=== PATIENT | female | born 2000 | race Caucasian/White ===

== ENCOUNTER 2024-08-26 05:03 | Inpatient (IN) | payer SELFPAY, OTHER ==
[2024-08-26] VITALS (47 sets, daily range): BP systolic 99–139; BP diastolic 61–97; PULSE 72–99; RESP 14–18; TEMP 36.2–37.1; O2SAT 88–100; BMI 39.3
[2024-08-26] MEDS: Lactated Ringers 1,000 ML 999 ML IV (05:25)
[2024-08-26 06:05] LABS: Absolute Lymphocyte Count 1.09 X10^3/uL (0.83-4.51); Absolute Neutrophil Count 15.9 X10^3/uL (2.0-7.7); Basophil# 0.03 X10^3/uL; Basophil% 0.2 % (0-1); Eosinophil# 0.01 X10^3/uL; Eosinophils% 0.1 % (0-5); Hematocrit 38.8 % (37-47); Hemoglobin 13.4 g/dL (12.0-15.0); Lymphocyte # 1.09 X10^3/ul (0.83-4.51); Lymphocyte % 6.1 % (19-41); Mean Corp Hgb Conc 34.5 g/dL (32-36); Mean Corpuscular Hgb 28.5 pg (27.0-32.0); Mean Corpuscular Volume 82.4 fL (81-99); Mean Platelet Vol. 9.3 fl (6.2-12.0); Monocyte# 0.82 X10^3/uL; Monocyte% 4.6 % (0-10); NRBC Flagged by Analyzer 0 % (0-5); Neutrophil # 15.94 X10^3/uL (2.7-7.7); Neutrophil % 88.5 % (47-70); Platelet Count 284 K/mm3 (150-450); RBC Distribution Width CV 13.2 % (11.6-14.6); RBC Distribution Width SD 39.4 fl (35.1-43.9); Red Blood Count 4.71 M/mm3 (4.2-5.4)
[2024-08-26] MEDS: Lactated Ringers 1,000 ML 200 ML IV ×2 (06:30→11:44)
[2024-08-26] MEDS: fentaNYL-bupivacaine (epidural) 100 ML BAG EPIDURAL ×2 (06:52→11:44)
--- NOTE | 2024-08-26 07:00 | PCM.HP.OB ---
HPI - General General Date of Admission: 08/26/24 HPI Narrative BENEDICT BAHENA, is a 23 F who presents @ 40w3d IAL presenting from home after attempting wanting pain management. she had a previous csection for AOD at 8 cm at [facility]. she delivered an 8lb 15 ounce baby around her due date she was induced for GHTN. She has been laboring since yesterday with contractions and made change to 8 cm, water intact, and then wanted pain management so her community relations police lieutenant Barb brought her to the hospital. bedside ultrasound confirms vertex presentation. Maternal Data Information RENETTA Calculator Estimated Delivery Date Method Current WG Current Estimate 08/23/24 Manual 40w 3d PFSH PFSH Home Medications ?Medication ?Instructions ?Recorded ?Last Taken ?Type NK 08/26/24 Unknown History Allergy/AdvReac Type Severity Reaction Status Date / Time No Known Allergies Allergy Verified 08/26/24 05:43 Surgical History (Updated 08/26/24 @ 07:[address] Arleen Cortez MD) delivery delivered Social History Smoking Status: Never smoker History 2 Elective abortions Hx Para 1 Spontaneous abortions Hx # Term Pregnancies 1 Ectopic pregnancies Hx # Pregnancies Multiple births # of living children 1 Past Pregnancies Del. Date Name GA/Weeks Outcome Route Bth Weight Gen Labor Lgth Anesthesia Del Locatn Provider FOB Unknown live - full term 8lbs 15 ounces Male Vina Delivery Date: Last Updated by: Arleen Cortez MD 8cm AOD IOL ghtn NST FHR Rate Baby A Baseline: 130 Variability:: Moderate Accelerations:: 15 x 15 Decelerations:: None NST Reactive:: Yes FHR Category:: Category I Uterine Activity:: irregular ROS Constitutional Constitutional: Reports systems reviewed and no addt'l complaints, except as documented Eyes Eyes: Denies change in vision ENT HEENT: Reports systems reviewed and no addt'l complaints, except as documented; Denies headache(s) Cardiovascular Cardiovascular: Reports systems reviewed and no addt'l complaints, except as documented; Denies chest pain or dyspnea Respiratory/Chest Respiratory/Chest: Reports systems reviewed and no addt'l complaints, except as documented Gastrointestinal Gastrointestinal: Reports systems reviewed and no addt'l complaints, except as documented; Denies abdominal pain Genitourinary Genitourinary: Reports systems reviewed and no addt'l complaints, except as documented, contractions Details: present (irregular) and movement Details: present; Denies dysuria or genital lesions Musculoskeletal Musculoskeletal: Reports systems reviewed and no addt'l complaints, except as documented Neurologic Neurologic: Reports systems reviewed and no addt'l complaints, except as documented Endocrine Endocrinology: Reports systems reviewed and no addt'l complaints, except as documented Vital Signs Vital Signs Vital Signs: 08/26/24 05:31 08/26/24 05:31 08/26/24 05:34 Temperature Temperature Source Temporal Pulse Rate 97 Respiratory Rate Blood Pressure BP Systolic BP Diastolic Pulse Ox 97 08/26/24 05:34 08/26/24 05:34 08/26/24 05:35 Temperature 97.8 F Temperature Source Pulse Rate Respiratory Rate 18 Blood Pressure 135/83 H BP Systolic 135 BP Diastolic 83 Pulse Ox 08/26/24 05:35 08/26/24 06:26 08/26/24 06:26 Temperature Temperature Source Pulse Rate 92 88 Respiratory Rate Blood Pressure 120/83 H BP Systolic 120 BP Diastolic 83 Pulse Ox 08/26/24 06:27 08/26/24 06:27 08/26/24 06:31 Temperature Temperature Source Pulse Rate 86 Respiratory Rate Blood Pressure 131/85 H BP Systolic 131 BP Diastolic 85 Pulse Ox 99 08/26/24 06:31 08/26/24 06:32 08/26/24 06:32 Temperature Temperature Source Pulse Rate 83 97 Respiratory Rate Blood Pressure BP Systolic BP Diastolic Pulse Ox 99 08/26/24 06:36 08/26/24 06:36 08/26/24 06:37 Temperature Temperature Source Pulse Rate 91 91 Respiratory Rate Blood Pressure 135/87 H BP Systolic 135 BP Diastolic 87 Pulse Ox 08/26/24 06:37 08/26/24 06:41 08/26/24 06:41 Temperature Temperature Source Pulse Rate 92 Respiratory Rate Blood Pressure 127/77 H BP Systolic 127 BP Diastolic 77 Pulse Ox 99 08/26/24 06:42 08/26/24 06:42 08/26/24 06:46 Temperature Temperature Source Pulse Rate 79 Respiratory Rate Blood Pressure 131/70 H BP Systolic 131 BP Diastolic 70 Pulse Ox 99 08/26/24 06:46 08/26/24 06:47 08/26/24 06:47 Temperature Temperature Source Pulse Rate 84 83 Respiratory Rate Blood Pressure BP Systolic BP Diastolic Pulse Ox 98 08/26/24 06:51 08/26/24 06:51 08/26/24 06:52 Temperature Temperature Source Pulse Rate 91 94 Respiratory Rate Blood Pressure 133/61 H BP Systolic 133 BP Diastolic 61 Pulse Ox 08/26/24 06:52 08/26/24 06:56 08/26/24 06:56 Temperature Temperature Source Pulse Rate 88 Respiratory Rate Blood Pressure 139/65 H BP Systolic 139 BP Diastolic 65 Pulse Ox 100 08/26/24 06:57 08/26/24 06:57 Temperature Temperature Source Pulse Rate 96 Respiratory Rate Blood Pressure BP Systolic BP Diastolic Pulse Ox 99 Weight Weight: 215 lb Body Mass Index (BMI) 39.3 Physical Exam Const alert, oriented x3, no apparent distress and healthy appearing HEENT normocephalic and moist oral mucous membranes Head and Scalp: atraumatic Neck full ROM, no lymphadenopathy, supple and thyroid normal General: trachea midline Lymph Lymphatic: no lymphadenopathy noted Chest inspection of chest normal Resp normal respiratory effort Cardio regular rate GI soft to palpation and non-tender GI Narrative: gravid Inspection: gravid external exam normal Manual OB Exam: estimated gestational size appropriate, presentation cephalic, dilated, effaced and station Extremity normal to inspection General Extremity: Negative for edema Skin no rashes or lesions noted Neuro no focal motor deficits and deep tendon reflexes 2+ bilaterally Motor Exam: strength 5/5 throughout and clonus absent Psych mental status grossly normal Labs Labs Labs: Blood Type A POSITIVE Antibody Screen NEGATIVE Hct 38.8 % (37-47) Hgb 13.4 g/dL (12.0-15.0) Syphilis Total Ab Pending Rubella IgG Antibody Pending Hep Bs Antigen Pending Hepatitis C Antibody Pending HIV 1&2 Antibody Pending Assessment & Plan (1) Active labor at term: COMMENT: trial of labor for PLAN: Plan patient wishes to proceed with trial of labor, recommend epidural and then plan AROM, possible pitocin if needed.
[2024-08-26 07:01] LABS: Bedside Glucose 103 mg/dL (74-106)
[2024-08-26 09:33] LABS: Bedside Glucose 92 mg/dL (74-106)
[2024-08-26 10:56] LABS: Bedside Glucose 96 mg/dL (74-106)
--- NOTE | 2024-08-26 12:15 | PCM.PN.BLA ---
Progress Note pit started for no change 1 hour after ROM cat I tracing iupc placed
[2024-08-26] MEDS: Oxytocin 15 Units/NS 250ml 15 UNITS/250 ML IV.SOLN 2 UNITS IV (12:28)
[2024-08-26 13:18] LABS: Bedside Glucose 100 mg/dL (74-106)
[2024-08-26] MEDS: 0.9% Normal Saline 1,000 ML IV.SOLN. 300 ML INTRA-UTER (13:52)
[2024-08-26 13:59] LABS: Rubella IgG Non-Reactive (Nonreactive); Syphilis Antibodies Non-reactive
[2024-08-26] MEDS: DiphenhydrAMINE 50 MG/ML Syringe IV (14:11)
[2024-08-26 14:16] LABS: Hepatitis B Surface Antigen Non-Reactive (Nonreactive); Hepatitis C Antibody Non-Reactive (Nonreactive)
[2024-08-26 16:10] LABS: Bedside Glucose 92 mg/dL (74-106)
[2024-08-26] MEDS: Acetaminophen 500 MG Tablet PO (16:21)
[2024-08-26] MEDS: Sodium Citrate/Citric Acid 30 ML UDC PO (16:21)
--- NOTE | 2024-08-26 16:30 | PN.OBGYN_ITS ---
Subjective Subjective no cervical change, regressin back to 6-7 cm despite pitocin and position changes, reocmmend proceeding with RLTCS. Objective Data Objective Data Vital Signs: Vital Signs Temp Pulse Resp BP Pulse Ox 98.7 F 82 16 119/76 99 08/26/24 12:22 08/26/24 12:22 08/26/24 12:22 08/26/24 12:22 08/26/24 12:22 Weight: 215 lb Body Mass Index (BMI) 39.3 Intake & Output: Intake and Output for Last 24 Hours 08/24/24 08/25/24 08/26/24 23:59 23:59 23:59 Intake Total 2000. / Output Total 1400 / 1400 Balance 601.03 / 601.03 Lab / Micro Data 08/26/24 05:25 Labs: Laboratory Results - last 24 hr 08/26/24 05:25: WBC 18.0 H, RBC 4.71, Hgb 13.4, Hct 38.8, MCV 82.4, MCH 28.5, MCHC 34.5, RDW Std Deviation 39.4, RDW Coeff of [place] 13.2, Plt Count 284, MPV 9.3, Immature Gran % (Auto) 0.500, Neut % (Auto) 88.5 H, Lymph % (Auto) 6.1 L, [place] % (Auto) 4.6, Eos % (Auto) 0.1, Baso % (Auto) 0.2, Absolute Neuts (auto) 15.9 H, Absolute Lymphs (auto) 1.09, Nucleated RBC % 0, Urine Color Cancelled, Urine Clarity Cancelled, Urine pH Cancelled, Ur Specific [place] Cancelled, U Specif Grav (Refrac) Cancelled, Urine Protein Cancelled, Urine Glucose (UA) Cancelled, Urine Ketones Cancelled, Urine Occult Blood Cancelled, Urine Nitrite Cancelled, Urine Bilirubin Cancelled, Urine Urobilinogen Cancelled, Ur Leukocyte Esterase Cancelled, Urine RBC Cancelled, Urine WBC Cancelled, Ur Squamous Epith Cells Cancelled, Ur Transition Epith Cell Cancelled, Ur Renal Epithelial Cell Cancelled, Calcium Oxalate Crystal Cancelled, Uric Acid Crystals Cancelled, Triple Phos Crystals Cancelled, Other Crystals Cancelled, Amorphous Sediment Cancelled, Urine Bacteria Cancelled, Hyaline Casts Cancelled, Fine Granular Casts Cancelled, Coarse Granular Casts Cancelled, Waxy Casts Cancelled, RBC Casts Cancelled, WBC Casts Cancelled, Urine Mucus Cancelled, Urine Trichomonas Cancelled, Urine Yeast Cancelled, Syphilis Total Ab Non-reactive, Hep Bs Antigen Non-Reactive, Hepatitis C Antibody Non-Reactive, Rubella IgG Antibody Non- Reactive, Blood Type A POSITIVE, Antibody Screen NEGATIVE 08/26/24 06:43: POC Glucose 103 08/26/24 09:15: POC Glucose 92 08/26/24 10:29: POC Glucose 96 08/26/24 12:35: POC Glucose 100 08/26/24 15:51: POC Glucose 92
--- NOTE | 2024-08-26 16:31 | OP.PCM_ITS ---
Assessment & Plan (1) Active labor at term: COMMENT: trial of labor for (2) Arrest of dilation, delivered, current hospitalization: (3) delivery delivered: COMMENT: RLTCS failed TOLAC 6-8 cm community health outreach worker care, 40 weeks diabetes. LORA amos Maternal Data Information RENETTA Calculator Estimated Delivery Date Method Current WG Current Estimate 08/23/24 Manual 40w 6d Operative Report (OB) Cecarean Details Procedure Type: low transverse Date of Procedure: 08/26/24 Procedure Start Time: 16:54 Procedure Stop Time: 17:25 Pre-Operative Diagnosis: Other Other Pre-Operative diagnosis: see a/p comments Post-Operative Diagnosis: Same as Pre-operative diagnosis Classification: DEB Type of Anesthesia: Epidural Special Medications: none Antibiotic Given: Ancef 2 grams IV x1 Drain: [place] to straight drain Estimated Blood Loss: 800 Fluids Replaced: crystalloid Findings Description of surgery: The patient was placed in the dorsal supine position with leftward tilt. Patient was prepped and draped in the normal sterile fashion. Pfannenstiel skin incision was made with the scalpel and carried through to the underlying layer of fascia with the scalpel. Fascia was nicked in the midline and the incision extended laterally. The rectus bellies were dissected off superiorly and inferiorly with out complication both sharply and bluntly. The peritoneum was entered digitally. The incision was stretched and a low transverse uterine incision was made with the scalpel. The infant's head was delivered atraumatically followed by the anterior and posterior shoulders without complication the rest of the infant delivered. The cord was clamped and cut and the infant was handed off to awaiting nurse. The placenta was delivered spontaneously immediately following and was noted to be intact and have a three- vessel cord. The uterus was exteriorized cleared of all clots and debris, and the incision was closed in a single layer closure using #1 Monocryl with some areas of extra reinforcement for structure and hemostasis. The ovaries and fallopian tubes were noted to be within normal limits. The uterus was returned to the maternal abdomen and gutters were cleared of all clots and debris. The peritoneum was closed with 3-0 Monocryl in a running fashion. Gloves were changed prior to fascial closure. Fascia was closed with 0 PDS in a running fashion. Subcutaneous tissue was copiously irrigated and the skin was closed with 3-0 Monocryl in a subcuticular fashion. Mepilex dressing was applied without complication. Patient was taken to recovery in stable condition. Surgical findings: nl uterus tubes and ovaries. Amniotic Membrane Rupture Type: Artificial Amniotic Fluid Description: Moderate meconium Specimen collected: Yes Description of specimen(s) removed: Placenta Cord Vessel Description: 3 Vessels Delayed Cord Clamping: Yes Information Delivery Analyst national dedicated truck driver: Yes Library Clerical Assistant: Keli Hurst Tasks completed by first breaker feeder: Opening & closing, Retracting and Other (Assisting with delivery of the ) Additional optometric assistant?: No Complications Complications: No Admit VTE Documentation VTE Present on Admission: No VTE Mechan Device Prophylaxis: SCD's Procedures Urinary/Genital [id number]: [id number] delivery+PP Care([facility])
--- NOTE | 2024-08-26 16:34 | DCINST_ITS ---
Discharge Instructions Diet Discharge Diet: No restrictions DC O2, CPAP, BIPAP needs Home O2 Discharge instructions: No Dressing / Incision Discharge Activity: May Not Drive (for 2 weeks or while taking narcotic pain medications.), May Shower and May Take a Tub Bath (in 7 days) May shower in (days): 0 May resume sexual activity in: 4-6 weeks Weight Bearing Status: Full weight bearing Lifting Restrictions: 20 pounds Dressing / Incision Call your doctor if your incision/area has: Continuous Slow Oozing, Sudden Increased Bleeding, Increased Pain/ Swelling, Increased Redness and Foul Smelling Discharge Call your doctor if you observe: Fever of 101 or Higher and Using more than 1 pad per hour (for 2 hours) Suture Line Care: Avoid Pulling/Pushing and Avoid Pinching/Bending Cleanse incision/area with: Soap & Water and Keep Dressing Clean & Dry Follow Up Care Please Follow Up With: Arleen Cortez MD When: Call [phone] to make an appointment for an incision check in 1-2 weeks. Test Results: Test results from this visit will be discussed in further detail at your follow- up appointment, if applicable. Discharge Plan Admission Admit Date/Time: 08/26/24 05:03 Attending Provider: Arleen Cortez Discharge Orders/Prescriptions Prescriptions: New oxycodone-acetaminophen [Percocet] 5-325 mg tablet 1 tab PO Q4H PRN (Reason: pain) 7 Days Qty: 20 0RF naproxen [naproxen] 500 mg tablet 500 mg PO BID PRN PRN (Reason: Pain) Qty: 30 1RF oxycodone-acetaminophen [Percocet] 5-325 mg tablet 1 tab PO Q6H PRN (Reason: pain) 7 Days Qty: 20 0RF naproxen 500 mg tablet 500 mg PO BID PRN PRN (Reason: Pain) Qty: 30 1RF oxycodone-acetaminophen [Percocet] 5-325 mg tablet 1 tab PO Q8H PRN (Reason: pain) 7 Days Qty: 20 0RF hydrocodone-acetaminophen 5-325 mg tablet 1 tab PO Q6H PRN (Reason: pain) 5 Days Qty: 20 0RF Disposition Disposition (needs filled in before D/C Order can be placed): Home, Self Care
[2024-08-26] MEDS: Cefazolin 2 GM in Syringe IV (16:40)
[2024-08-26] MEDS: Azithromycin 500 MG in 0.9% Normal Saline (250mL Bag) 250 ML 255 MG IV (16:40)
[2024-08-26] MEDS: Oxytocin 15 Units/NS 250ml 15 UNITS/250 ML IV.SOLN 83 UNITS IV (17:45)
[2024-08-26] MEDS: Ketorolac 30 MG/ML Syringe IV ×2 (18:12→23:44)
[2024-08-26 18:32] LABS: Bedside Glucose 103 mg/dL (74-106)
[2024-08-26] MEDS: 0.9% Saline Lock 10 ML Syringe IV ×2 (20:50→23:44)
[2024-08-26] MEDS: Acetaminophen 500 MG Tablet 1000 MG PO (22:36)
[2024-08-27] VITALS (8 sets, daily range): BP systolic 105–114; BP diastolic 56–67; PULSE 68–85; RESP 16; TEMP 36.1–36.6; O2SAT 97–100
[2024-08-27] MEDS: Acetaminophen 500 MG Tablet 1000 MG PO ×3 (04:35→16:59)
[2024-08-27] MEDS: 0.9% Saline Lock 10 ML Syringe IV (05:50)
[2024-08-27] MEDS: Ketorolac 30 MG/ML Syringe IV ×2 (05:50→12:17)
[2024-08-27 06:07] LABS: Hematocrit 30.1 % (37-47); Hemoglobin 10.4 g/dL (12.0-15.0); Mean Corp Hgb Conc 34.6 g/dL (32-36); Mean Corpuscular Hgb 29.5 pg (27.0-32.0); Mean Corpuscular Volume 85.3 fL (81-99); Mean Platelet Vol. 8.9 fl (6.2-12.0); Platelet Count 208 K/mm3 (150-450); RBC Distribution Width CV 13.4 % (11.6-14.6); RBC Distribution Width SD 41.8 fl (35.1-43.9); Red Blood Count 3.53 M/mm3 (4.2-5.4); White Blood Count 17.1 K/mm3 (4.4-11.0)
[2024-08-27 06:27] LABS: Bedside Glucose 81 mg/dL (74-106)
--- NOTE | 2024-08-27 08:47 | PCM.PN.OB ---
Subjective Subjective Patient doing well without complaints. Tolerating PO. Ambulating and voiding without difficulty. Feeding well. Denies chest pain, shortness of breath, calf pain/swelling, fevers, chills, lightheadedness. Objective Data Objective Data Vital Signs: Vital Signs Temp Pulse Resp BP Pulse Ox O2 Del Method 97.9 F 85 16 110/65 97 Room Air 08/27/24 08:36 08/27/24 08:36 08/27/24 08:36 08/27/24 08:36 08/27/24 04:35 08/27/24 08:36 Oxygen Delivery Method Room Air Weight: 215 lb Body Mass Index (BMI) 39.3 Intake & Output: Intake and Output for Last 24 Hours 08/25/24 08/26/24 08/27/24 23:59 23:59 23:59 Intake Total 3538.00 / 3538.00 Output Total 3200 / 3200 300 / 300 Balance 338.00 / 338.00 -300 / -300 Lab / Micro Data Attestation: I reviewed the patient's lab results. 08/27/24 05:55 Labs: Laboratory Results - last 24 hr 08/26/24 05:25: Urine Color Cancelled, Urine Clarity Cancelled, Urine pH Cancelled, Ur Specific [place] Cancelled, U Specif Grav (Refrac) Cancelled, Urine Protein Cancelled, Urine Glucose (UA) Cancelled, Urine Ketones Cancelled, Urine Occult Blood Cancelled, Urine Nitrite Cancelled, Urine Bilirubin Cancelled, Urine Urobilinogen Cancelled, Ur Leukocyte Esterase Cancelled, Urine RBC Cancelled, Urine WBC Cancelled, Ur Squamous Epith Cells Cancelled, Ur Transition Epith Cell Cancelled, Ur Renal Epithelial Cell Cancelled, Calcium Oxalate Crystal Cancelled, Uric Acid Crystals Cancelled, Triple Phos Crystals Cancelled, Other Crystals Cancelled, Amorphous Sediment Cancelled, Urine Bacteria Cancelled, Hyaline Casts Cancelled, Fine Granular Casts Cancelled, Coarse Granular Casts Cancelled, Waxy Casts Cancelled, RBC Casts Cancelled, WBC Casts Cancelled, Urine Mucus Cancelled, Urine Trichomonas Cancelled, Urine Yeast Cancelled, Syphilis Total Ab Non-reactive, Hep Bs Antigen Non-Reactive, Hepatitis C Antibody Non-Reactive, Rubella IgG Antibody Non-Reactive 08/26/24 09:15: POC Glucose 92 08/26/24 10:29: POC Glucose 96 08/26/24 12:35: POC Glucose 100 08/26/24 15:51: POC Glucose 92 08/26/24 18:01: POC Glucose 103 08/27/24 05:55: WBC 17.1 H, RBC 3.53 L, Hgb 10.4 L, Hct 30.1 L, MCV 85.3, MCH 29.5, MCHC 34.6, RDW Std Deviation 41.8, RDW Coeff of [place] 13.4, Plt Count 208, MPV 8.9 08/27/24 06:09: POC Glucose 81 ROS Constitutional Constitutional: Reports systems reviewed and no addt'l complaints, except as documented; Denies anorexia or headache(s) Cardiovascular Cardiovascular: Reports systems reviewed and no addt'l complaints, except as documented; Denies dizziness, dyspnea, nausea or tachypnea Respiratory/Chest Respiratory/Chest: Reports systems reviewed and no addt'l complaints, except as documented; Denies cough, dyspnea, shortness of breath at rest or tachypnea Gastrointestinal Gastrointestinal: Reports systems reviewed and no addt'l complaints, except as documented; Denies abdominal pain, constipation or nausea Genitourinary Genitourinary: Reports systems reviewed and no addt'l complaints, except as documented; Denies burning urination, difficulty urinating, dysuria, urinary frequency or urinary incontinence Musculoskeletal Musculoskeletal: Reports systems reviewed and no addt'l complaints, except as documented Integumentary Integumentary: Reports systems reviewed and no addt'l complaints, except as documented Neurologic Neurologic: Reports systems reviewed and no addt'l complaints, except as documented; Denies abnormal speech, dizziness or headache(s) Psychiatric Psychiatric: Reports systems reviewed and no addt'l complaints, except as documented Endocrine Endocrinology: Reports systems reviewed and no addt'l complaints, except as documented Hematologic/Lymphatic Hematologic/Lymphatic: Reports systems reviewed and no addt'l complaints, except as documented Physical Exam Const alert, oriented x3 and no apparent distress Neck full ROM Resp normal respiratory effort, normal air movement and no retractions Effort and Inspection: able to speak in complete sentences and symmetric chest movement GI soft to palpation Inspection: incision intact Bladder / Kidney Exam: bladder normal to palpation Uterus Palpation: uterus fundus Extremity normal to inspection and full ROM Psych mental status grossly normal, thought process normal and cooperative Assessment & Plan (1) delivery delivered: COMMENT: RLTCS failed TOLAC 6-8 cm community marketing coordinator care, 40 weeks diabetes. SM boy PLAN: s/p LTCS PPD # 1 1. routine post care 2. breast feeding- support given 3. rh positive 4. rubella immune 5. Discharge Home (2) Arrest of dilation, delivered, current hospitalization: (3) Active labor at term: COMMENT: trial of labor for Charges/Coding Multi Select Codes Urinary/Genital Urinary/Genital CPT Codes: No Charge
[2024-08-27] MEDS: Senna/Docusate Sodium 1 Tablet PO (10:26)
[2024-08-28 21:54] LABS: HIV - WCH Non-Reactive (Nonreactive)
== END 2024-08-27 18:40 | disposition home or self-care (01) | DRG 786 ==
PROVIDERS: Admitting Provider Obstetrics & Gynecology; Referring Provider Obstetrics & Gynecology; Visit Provider Obstetrics & Gynecology
DX: O62.0 Primary inadequate contractions (principal); O24.12 Pre-existing type 2 diabetes mellitus, in childbirth; O34.211 Maternal care for low transverse scar from previous cesarean delivery; O77.0 Labor and delivery complicated by meconium in amniotic fluid; Z37.0 Single live birth; Z3A.40 40 weeks gestation of pregnancy
CPT/HCPCS: 59025; 59050; 76815; 81001; 82962; 85025; 85027; 86703; 86762; 86780; 86803; 86850; 86900; 86901; 87340; 99221; A4216; G0378